=== PATIENT | male | born 1990 | race Native Hawaiian/Other Pacific Islander ===

== ENCOUNTER 2021-12-18 11:55 | Emergency (ER) | payer OTHER ==
[~2021-12-18] VITALS: Ht 185.4 cm; Wt 88.5 kg
[2021-12-18 11:55] VITALS: BP 135/79; TEMP 97.6
== END 2021-12-18 12:49 ==
LOC: ED 11:55
DX: N48.39 Other priapism (principal)
CPT/HCPCS: 80307; 81000; 99283